=== PATIENT | female | born 1930 | race Caucasian/White ===

== ENCOUNTER 2016-07-28 10:03 | Inpatient (IN) | payer OTHER, BC ==
[~2016-07-28] VITALS: Ht 170.2 cm; Wt 81.3 kg
[~2016-07-28 10:03] MED LIST: AMBIEN CR6.25 MG PO; AUGMENTIN875 MG PO; CARDIZEM60 MG PO; DIAZEPAM2 MG PO; DILAUDID2 MG PO; ENDOCET 5-3251 EACH PO; ERGOCALCIF50000 UNIT PO; FLEET ENEMA-AD118 ML PR; GABAPENTIN100 MG PO; LIDODERM 5% P1 PATCH TD; Mycostatin TP; OXYCODONE HCL5 MG PO; PRILOSEC20 MG PO; Pradaxa PO; PriLOSEC PO; ROPINIROLE HC0.25 MG PO; SENNA8.6 M1 PO; SEPTRA DS TABL1 EACH PO; SKELAXIN400 M1 PO; SKELAXIN800 MG PO; TRAMADOL HCL50 MG PO; Ultram PO; Vicodin,Norco 5/325 PO; XALATAN2.5 ML BOTH EYES; Xalatan 0.005% Ophth BOTH EYES; ZOFRAN4 MG PO; ZYVOX600 MG PO; [UNRECOGNIZED DRUG - CODE] PO
[2016-07-28 11:29] LABS: EOSINOPHIL (%) 0.6 % (0-5); EOSINOPHIL COUNT 0.1 K/uL (0-0.3); HEMATOCRIT 41.8 % (36.0-46.0); IMMATURE GRANULOCYTE (%) 0.5 % (0.0-0.7); IMMATURE GRANULOCYTE COUNT 0.1 K/uL; INSTRUMENT ABS NEUTROPHIL CT 9.3 K/uL; LYMPHOCYTE COUNT 0.9 K/uL (1.0-2.8); MCH 28.4 PG (29.0-34.0); MCHC 32.1 G/DL (30.0-36.0); MCV 88.6 FL (83-99); MEAN PLAT.VOLUME 9.9 uM^3 (9.5-12.4); MONOCYTE (%) 7.7 % (3-12); MONOCYTE COUNT 0.9 K/uL (0-0.8); NEUTROPHIL (%) 82.5 % (45-76); NEUTROPHIL COUNT 9.3 K/uL (1.8-6.4); PLATELET COUNT 262 K/uL (156-360); RBC DIS.WIDTH-CV 13.9 % (11.8-14.6); RBC DIS.WIDTH-SD 45.6 % (39-53); RED BLOOD COUNT 4.72 M/uL (3.80-5.20); WHITE BLOOD COUNT 11.3 K/uL (4.1-10.2)
[2016-07-28 11:35] LABS: CHLORIDE 101 mEq/L (99-109); INTER. NORMALIZED RATIO 1.1; POTASSIUM 3.9 mEq/L (3.7-5.4); PROTHROMBIN TIME 11.5 (9.2-11.2); SODIUM 134 mEq/L (136-147)
[2016-07-28 11:37] LABS: GLUCOSE 118 mg/dL (70-99)
[2016-07-28 11:39] LABS: ANION GAP 9 MEQ/L (2-14); TOTAL BILIRUBIN 0.5 mg/dL (0.0-1.0)
[2016-07-28 11:41] LABS: ALKALINE PHOSPHATASE 73 IU/L (3-129); GFR ESTIMATE (CALCULATED) > 59 mL/min/
[2016-07-28 11:42] LABS: UREA NITROGEN (BUN) 10 mg/dL (9-23)
[2016-07-28 11:44] LABS: LIPASE 11 U/L (1.0-51.0)
[2016-07-28 12:15] LABS: ADD MIUA? YES; BILIRUBIN NEGATIVE; BLOOD NEGATIVE; COLOR AMBER ((YELLOW)); GLUCOSE (STRIP) NEGATIVE; KETONES 5; LEUKOCYTES SMALL; NITRITE POSITIVE; PROTEIN (STRIP) 30; SPECIFIC GRAVITY 1.017 (1.000-1.030); UROBILINOGEN 0.2 MG/DL (0.2-1.0)
[2016-07-28 12:39] LABS: BACTERIA 1+ /HPF; CALCIUM OXALATE CRYSTALS 4+ /HPF; EPITHELIAL CELLS 1+ /HPF; MUCUS 2+ /LPF; RED BLOOD CELLS 0-5 /HPF (0-5); WHITE BLOOD CELLS 20-30 /HPF (0-5)
[2016-07-28] MEDS ORDERED: CYANOCOBAL1000 MCG/2 IM (14:33)
[2016-07-28] MEDS ORDERED: ASCORBIC ACID500 M3 PO (14:34)
[2016-07-28] MEDS ORDERED: MERIBIN5 MG PO (14:34)
[2016-07-28] MEDS ORDERED: SENOKOT,SENN1 TABLET PO (14:34)
[2016-07-28] MEDS ORDERED: FEOSOL325 MG PO (14:34)
[2016-07-28] MEDS ORDERED: EXTRA STRENGTH500 M1 PO (14:35)
[2016-07-28] MEDS ORDERED: MELATONIN1 MG PO (14:35)
[2016-07-28 20:33] VITALS: BP 161/77
[2016-07-28 21:18] LABS: POINT-OF-CARE METER ID UU13113717
[2016-07-29] VITALS (8 sets, daily range): BP systolic 124–138; BP diastolic 64–78
[2016-07-29 06:20] LABS: BASOPHIL COUNT 0.1 K/uL (0-0.1); EOSINOPHIL (%) 0.6 % (0-5); EOSINOPHIL COUNT 0.1 K/uL (0-0.3); HEMATOCRIT 35.3 % (36.0-46.0); IMMATURE GRANULOCYTE (%) 0.7 % (0.0-0.7); IMMATURE GRANULOCYTE COUNT 0.1 K/uL; LYMPHOCYTE COUNT 0.7 K/uL (1.0-2.8); MCH 29.3 PG (29.0-34.0); MCHC 32.9 G/DL (30.0-36.0); MCV 89.1 FL (83-99); MEAN PLAT.VOLUME 9.8 uM^3 (9.5-12.4); MONOCYTE (%) 8.3 % (3-12); MONOCYTE COUNT 0.9 K/uL (0-0.8); NEUTROPHIL (%) 83.5 % (45-76); PLATELET COUNT 238 K/uL (156-360); RBC DIS.WIDTH-CV 13.8 % (11.8-14.6); RBC DIS.WIDTH-SD 45.1 % (39-53); RED BLOOD COUNT 3.96 M/uL (3.80-5.20); WHITE BLOOD COUNT 10.8 K/uL (4.1-10.2)
[2016-07-29 06:44] LABS: ANION GAP 12 MEQ/L (2-14); CHLORIDE 105 MEQ/L (99-109); POTASSIUM 3.7 MEQ/L (3.7-5.4); SAMPLE HEMOLYSIS CHECK 0; SAMPLE ICTERIC CHECK 0; SAMPLE LIPEMIA CHECK 0; SODIUM 137 MEQ/L (136-147)
[2016-07-29 06:48] LABS: Estimated Average Glucose 126 mg/dL (70-123)
[2016-07-29 06:50] LABS: GFR ESTIMATE (CALCULATED) > 59 mL/min/; GLUCOSE 106 mg/dL (70-99); UREA NITROGEN (BUN) 7 mg/dL (9-23)
[2016-07-29 11:36] LABS: POINT-OF-CARE METER ID UU13113717
[2016-07-30] VITALS (7 sets, daily range): BP systolic 125–161; BP diastolic 68–96
[2016-07-31 03:36] VITALS: BP 133/68
[2016-07-31 08:02] VITALS: BP 145/71
[2016-07-31 11:55] VITALS: BP 127/81
[2016-07-31 13:00] LABS: GFR ESTIMATE (CALCULATED) > 59 mL/min/; UREA NITROGEN (BUN) 6 mg/dL (9-23)
[2016-07-31 16:57] VITALS: BP 139/71
[2016-07-31 19:29] VITALS: BP 148/75
[2016-07-31 23:34] VITALS: BP 154/76
[2016-08-01 03:58] VITALS: BP 153/90
[2016-08-01 08:21] VITALS: BP 173/79
[2016-08-01 12:15] VITALS: BP 130/68
[2016-08-01 16:00] VITALS: BP 154/73
[2016-08-01 20:12] VITALS: BP 135/71
[2016-08-02 00:01] VITALS: BP 133/63
[2016-08-02 04:11] VITALS: BP 146/76
[2016-08-02 07:26] LABS: GFR ESTIMATE (CALCULATED) > 59 mL/min/
[2016-08-02 08:35] VITALS: BP 142/67
[2016-08-02 09:57] LABS: POINT-OF-CARE METER ID UU14174225
[2016-08-02 12:17] VITALS: BP 132/76
[2016-08-02 15:56] VITALS: BP 134/28
[2016-08-02 19:31] VITALS: BP 143/67
[2016-08-03] VITALS: BP 138/77
[2016-08-03 08:06] VITALS: BP 140/82
[2016-08-03] MEDS ORDERED: BACTRIM,SEPT1 TABLET PO (11:48)
[2016-08-03] MEDS ORDERED: ZOFRAN4 MG PO (11:49)
[2016-08-03] MEDS ORDERED: LOPRESSOR25 MG PO (11:49)
[2016-08-03 15:13] VITALS: BP 132/78
[2016-08-03 23:49] VITALS: BP 150/69
[2016-08-04 07:24] VITALS: BP 158/78
== END 2016-08-04 15:48 | disposition home or self-care (01) | DRG 919 ==
LOC: EME → EDBD 10:03 → EDOF 14:44 → 5SOUTH 14:44
PROVIDERS: Emergency Medicine; Hospitalist; Internal Medicine; Internal Medicine Infectious Disease
PROC: 0W9F30Z Drainage of Abdominal Wall with Drainage Device, Percutaneous Approach (ICD-10-PCS; principal; 2016-07-29)
PROC: 0WPFX0Z Removal of Drainage Device from Abdominal Wall, External Approach (ICD-10-PCS; 2016-08-04)
DX: T85.79XA Infection and inflammatory reaction due to other internal prosthetic devices, implants and grafts, initial encounter (principal); L03.311 Cellulitis of abdominal wall; I10 Essential (primary) hypertension; J98.11 Atelectasis; N30.00 Acute cystitis without hematuria; E11.628 Type 2 diabetes mellitus with other skin complications; K59.00 Constipation, unspecified; K21.9 Gastro-esophageal reflux disease without esophagitis; E87.1 Hypo-osmolality and hyponatremia; F32.9 Major depressive disorder, single episode, unspecified; K44.9 Diaphragmatic hernia without obstruction or gangrene; J18.9 Pneumonia, unspecified organism; K13.70 Unspecified lesions of oral mucosa; K43.2 Incisional hernia without obstruction or gangrene; L29.9 Pruritus, unspecified; Y83.2 Surgical operation with anastomosis, bypass or graft as the cause of abnormal reaction of the patient, or of later complication, without mention of misadventure at the time of the procedure; Z79.4 Long term (current) use of insulin; Z90.49 Acquired absence of other specified parts of digestive tract; Z86.14 Personal history of Methicillin resistant Staphylococcus aureus infection; Z88.6 Allergy status to analgesic agent; S22.089S Unspecified fracture of T11-T12 vertebra, sequela
CPT/HCPCS: 10030; 71010; 74177; 80048; 80053; 80202; 81003; 82565; 82948; 83036; 83605; 83690; 84520; 85025; 85027; 85610; 87040; 87070; 87075; 87077; 87086; 87147; 87186; 87205; 93005; 94010; 94640; 94640 76; 94760; 94799; 97530 GO; 97530 GP; 99202; 99281; 99285; C1769; J0456; J0696; J1170; J1644; J1815; J3010; J3370; J7030; J7050

== ENCOUNTER 2016-09-01 03:10 | Emergency (ER) | payer OTHER, BC ==
[~2016-09-01] VITALS: Ht 170.2 cm; Wt 80.0 kg
[~2016-09-01 03:10] MED LIST changes: +ASCORBIC ACID500 M3 PO; +BACTRIM,SEPT1 TABLET PO; +CYANOCOBAL1000 MCG/2 IM; +EXTRA STRENGTH500 M1 PO; +FEOSOL325 MG PO; +LOPRESSOR25 MG PO; +MELATONIN1 MG PO; +MERIBIN5 MG PO; +SENOKOT,SENN1 TABLET PO
[2016-09-01 04:08] LABS: HEMATOCRIT 41.4 % (36.0-46.0); MCHC 32.4 G/DL (30.0-36.0); MCV 89.6 FL (83-99); MEAN PLAT.VOLUME 9.3 uM^3 (9.5-12.4); PLATELET COUNT 260 K/uL (156-360); RBC DIS.WIDTH-CV 15.9 % (11.8-14.6); RBC DIS.WIDTH-SD 52.6 % (39-53); RED BLOOD COUNT 4.62 M/uL (3.80-5.20); WHITE BLOOD COUNT 8.1 K/uL (4.1-10.2)
[2016-09-01 04:21] LABS: CHLORIDE 103 mEq/L (99-109); POTASSIUM 3.6 mEq/L (3.7-5.4); SODIUM 139 mEq/L (136-147)
[2016-09-01 04:23] LABS: GLUCOSE 111 mg/dL (70-99)
[2016-09-01 04:24] LABS: ANION GAP 9 MEQ/L (2-14)
[2016-09-01 04:25] LABS: TOTAL BILIRUBIN 0.4 mg/dL (0.0-1.0)
[2016-09-01 04:27] LABS: ALKALINE PHOSPHATASE 78 IU/L (3-129); GFR ESTIMATE (CALCULATED) > 59 mL/min/
[2016-09-01 04:28] LABS: UREA NITROGEN (BUN) 14 mg/dL (9-23)
[2016-09-01 04:30] LABS: LIPASE 9 U/L (1.0-51.0)
[2016-09-01 05:37] LABS: ADD MIUA? YES; BILIRUBIN NEGATIVE; BLOOD NEGATIVE; COLOR YELLOW ((YELLOW)); GLUCOSE (STRIP) NEGATIVE; KETONES NEGATIVE; LEUKOCYTES MODERATE; NITRITE NEGATIVE; PROTEIN (STRIP) NEGATIVE; SPECIFIC GRAVITY 1.013 (1.000-1.030); UROBILINOGEN 0.2 MG/DL (0.2-1.0)
[2016-09-01] MEDS ORDERED: LIDODERM 5% P1 PATCH TD (06:10)
[2016-09-01] MEDS ORDERED: PERCOCET 5/31 TABLET PO (06:10)
[2016-09-01 06:17] LABS: EPITHELIAL CELLS 2+ /HPF; RED BLOOD CELLS 0-5 /HPF (0-5); WHITE BLOOD CELLS 20-30 /HPF (0-5)
[2016-09-01 06:18] LABS: BACTERIA 2+ /HPF; CASTS NONE SEEN /LPF; CRYSTALS NONE SEEN; MUCUS 1+ /LPF; UCUL ADDED? YES
[2016-09-01] MEDS ORDERED: VANTIN100 MG PO (06:21)
[2016-09-01 07:17] VITALS: BP 112/62
== END 2016-09-01 07:20 | disposition home or self-care (01) ==
LOC: EME → EDBD 03:10 → EME 07:20
PROVIDERS: Emergency Medicine
DX: N30.90 Cystitis, unspecified without hematuria (principal); M54.5 Low back pain; G89.29 Other chronic pain; E11.9 Type 2 diabetes mellitus without complications; Z87.442 Personal history of urinary calculi; Z87.891 Personal history of nicotine dependence
CPT/HCPCS: 72131; 74176; 80053; 81003; 83690; 85027; 87077; 87086; 87186; 99281; 99285; J0696; J2270; J2405; J7030; J7050

== ENCOUNTER 2016-11-29 10:10 | Inpatient (IN) | payer OTHER, BC ==
[~2016-11-29] VITALS: Ht 170.2 cm; Wt 76.9 kg
[~2016-11-29 10:10] MED LIST changes: +PERCOCET 5/31 TABLET PO; +VANTIN100 MG PO
[2016-11-29 12:43] LABS: HEMATOCRIT 40.9 % (36.0-46.0); MCH 30.1 PG (29.0-34.0); MCHC 32.8 G/DL (30.0-36.0); MCV 91.9 FL (83-99); MEAN PLAT.VOLUME 10.1 uM^3 (9.5-12.4); PLATELET COUNT 352 K/uL (156-360); RBC DIS.WIDTH-CV 13.1 % (11.8-14.6); RBC DIS.WIDTH-SD 43.7 % (39-53); RED BLOOD COUNT 4.45 M/uL (3.80-5.20); WHITE BLOOD COUNT 9.7 K/uL (4.1-10.2)
[2016-11-29 12:53] LABS: CHLORIDE 103 mEq/L (99-109); POTASSIUM 4.5 mEq/L (3.7-5.4); SODIUM 139 mEq/L (136-147)
[2016-11-29 12:54] LABS: GLUCOSE 124 mg/dL (70-99)
[2016-11-29 12:56] LABS: ANION GAP 15 MEQ/L (2-14)
[2016-11-29 12:58] LABS: GFR ESTIMATE (CALCULATED) > 59 mL/min/
[2016-11-29 12:59] LABS: UREA NITROGEN (BUN) 13 mg/dL (9-23)
[2016-11-29] MEDS ORDERED: NEURONTIN100 MG PO ×2 (15:07→15:18)
[2016-11-29] MEDS ORDERED: NYSTOP60 GM TP (15:14)
[2016-11-29] MEDS ORDERED: MILK OF MAGN PO (15:15)
[2016-11-29] MEDS ORDERED: KEFLEX500 MG PO (15:19)
[2016-11-29] MEDS ORDERED: FLORASTOR250 MG PO (15:20)
[2016-11-29 17:20] VITALS: BP 147/69
[2016-11-29 17:30] VITALS: BP 147/69
[2016-11-29 19:39] VITALS: BP 147/69
[2016-11-29 19:53] VITALS: BP 132/62
[2016-11-29 23:32] VITALS: BP 145/80
[2016-11-30 03:42] VITALS: BP 161/73
[2016-11-30 05:46] LABS: METH RESISTANT S AUREUS PCR NEGATIVE (NEGATIVE)
[2016-11-30 05:54] LABS: PROBE CHECK PASS; SPECIMEN PROCESSING CONTROL PASS
[2016-11-30 06:49] LABS: HEMATOCRIT 36.3 % (36.0-46.0); MCH 29.3 PG (29.0-34.0); MCHC 31.7 G/DL (30.0-36.0); MCV 92.4 FL (83-99); MEAN PLAT.VOLUME 9.7 uM^3 (9.5-12.4); PLATELET COUNT 319 K/uL (156-360); RBC DIS.WIDTH-CV 12.9 % (11.8-14.6); RED BLOOD COUNT 3.93 M/uL (3.80-5.20); WHITE BLOOD COUNT 7.7 K/uL (4.1-10.2)
[2016-11-30 07:16] LABS: ALKALINE PHOSPHATASE 60 IU/L (3-129); ANION GAP 9 MEQ/L (2-14); CHLORIDE 108 MEQ/L (99-109); GFR ESTIMATE (CALCULATED) > 59 mL/min/; GLUCOSE 97 mg/dL (70-99); POTASSIUM 3.6 MEQ/L (3.7-5.4); SAMPLE HEMOLYSIS CHECK 0; SAMPLE ICTERIC CHECK 0; SAMPLE LIPEMIA CHECK 0; SODIUM 142 MEQ/L (136-147); TOTAL BILIRUBIN 0.2 MG/DL (0.0-1.0); UREA NITROGEN (BUN) 7 mg/dL (9-23)
[2016-11-30 08:06] VITALS: BP 145/70
[2016-11-30 10:30] LABS: INTER. NORMALIZED RATIO 1.3; PROTHROMBIN TIME 13.9 SEC (10.2-12.9)
[2016-11-30 11:48] VITALS: BP 136/65
[2016-11-30 16:11] VITALS: BP 137/63
[2016-11-30 20:16] VITALS: BP 135/63
[2016-12-01 00:09] VITALS: BP 111/58
[2016-12-01 04:26] VITALS: BP 168/75
[2016-12-01 08:18] VITALS: BP 152/75; BP 152/752
[2016-12-01 15:48] VITALS: BP 120/74
[2016-12-01 21:47] VITALS: BP 149/69
[2016-12-01 21:50] VITALS: BP 149/69
[2016-12-02 03:44] VITALS: BP 117/56
[2016-12-02 06:59] LABS: HEMATOCRIT 35.3 % (36.0-46.0); MCH 29.2 PG (29.0-34.0); MCHC 32.3 G/DL (30.0-36.0); MCV 90.3 FL (83-99); MEAN PLAT.VOLUME 9.5 uM^3 (9.5-12.4); PLATELET COUNT 308 K/uL (156-360); RBC DIS.WIDTH-CV 12.8 % (11.8-14.6); RBC DIS.WIDTH-SD 42.6 % (39-53); RED BLOOD COUNT 3.91 M/uL (3.80-5.20)
[2016-12-02 08:30] VITALS: BP 121/60
[2016-12-02 12:11] VITALS: BP 125/59
[2016-12-02 16:30] VITALS: BP 140/72
[2016-12-02 23:11] VITALS: BP 169/74
[2016-12-03 10:00] VITALS: BP 171/77
[2016-12-03] MEDS ORDERED: BACTRIM,SEPT1 TABLET PO (12:57)
== END 2016-12-03 15:54 | disposition home health service (06) | DRG 908 ==
LOC: EME 10:10 → EDOF 15:14 → 3EAST 15:14 → ENRESERV 15:41 → 3EAST 16:25
PROVIDERS: Nurse Practitioner Family; Physician Assistant; Radiology Diagnostic Radiology; Surgery
DX: T85.79XA Infection and inflammatory reaction due to other internal prosthetic devices, implants and grafts, initial encounter (principal); Y83.8 Other surgical procedures as the cause of abnormal reaction of the patient, or of later complication, without mention of misadventure at the time of the procedure; L02.211 Cutaneous abscess of abdominal wall; L03.311 Cellulitis of abdominal wall; B95.62 Methicillin resistant Staphylococcus aureus infection as the cause of diseases classified elsewhere; K43.2 Incisional hernia without obstruction or gangrene; I10 Essential (primary) hypertension; J45.909 Unspecified asthma, uncomplicated; F32.9 Major depressive disorder, single episode, unspecified; M81.0 Age-related osteoporosis without current pathological fracture; E11.9 Type 2 diabetes mellitus without complications; F41.9 Anxiety disorder, unspecified; Z86.14 Personal history of Methicillin resistant Staphylococcus aureus infection; Z87.891 Personal history of nicotine dependence
CPT/HCPCS: 74176; 74177; 80048; 80053; 80202; 82565; 83605; 85027; 85610; 85730; 87040; 87070; 87075; 87077; 87147; 87186; 87205; 87641; 97530 GP; 99281; 99285; C1751; J1170; J1650; J2405; J3010; J3370; J7030; J7042

== ENCOUNTER 2017-06-09 15:56 | Emergency (ER) | payer OTHER, BC ==
[~2017-06-09] VITALS: Ht 170.2 cm; Wt 84.4 kg
[~2017-06-09 15:56] MED LIST changes: +FLORASTOR250 MG PO; +KEFLEX500 MG PO; +MILK OF MAGN PO; +NEURONTIN100 MG PO; +NYSTOP60 GM TP
[2017-06-09] MEDS ORDERED: PERCOCET 5/31 TABLET PO (17:43)
[2017-06-09 18:07] VITALS: BP 151/94
== END 2017-06-09 18:00 | disposition home or self-care (01) ==
LOC: EME 15:56
DX: S42.211A Unspecified displaced fracture of surgical neck of right humerus, initial encounter for closed fracture (principal); W05.0XXA Fall from non-moving wheelchair, initial encounter; F32.9 Major depressive disorder, single episode, unspecified; F41.9 Anxiety disorder, unspecified; J45.909 Unspecified asthma, uncomplicated; Z87.442 Personal history of urinary calculi; Z87.891 Personal history of nicotine dependence; Z88.5 Allergy status to narcotic agent
CPT/HCPCS: 73030; 99281; 99284; J3010